=== PATIENT | female | born 2000 ===

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

== ENCOUNTER 2021-04-13 18:27 | Emergency (ER) | payer OTHER ==
--- NOTE | 2021-04-13 19:35 | XRay Report ---
EXAMINATION: Right rib radiograph series, 04/13/2021 CLINICAL INFORMATION / INDICATION: Right rib pain. No history of trauma is given. COMPARISON: None FINDINGS: No displaced right rib fracture or other acute bony abnormality of the right ribs is identi fied. The accompanying chest radiograph demonstrates no evidence of acute cardiopulmonary process. IMPRESSION: No radiographic evidence of acute bony abnormality of the right ribs. Signer Name: Dorita Graf MD Signed: 04/13/2021 7:31 PM Workstation Name: [id number]
--- NOTE | 2021-04-13 20:19 | Emergency Department Report ---
ED General Adult HPI - General Chief complaint: Pain General Stated complaint: RIB PAIN Time Seen by Provider: 04/13/21 18:47 Source: patient, family Mode of arrival: Ambulatory Limitations: No Limitations - History of Present Illness Initial comments: FELL ON HER RIGHT SIDE OF CHEST FEW WEEKS AGO STILL HURTS -: Sudden, days(s) Location: chest Radiation: non-radiation Severity scale (0 -10): 5 Consistency: intermittent Improves with: movement Worsens with: none - Related Data Previous Rx's Medication Instructions Recorded Last Taken Type Ibuprofen [Motrin 600 MG tab] 600 mg PO Q8H PRN #15 tablet 06/03/18 Unknown Rx Doxylamine Succinate/Vit B6 1 each PO BID #20 tablet. 05/27/19 Unknown Rx [Gustavo Lea 10-10 mg Tablet] Ketorolac [Toradol] 10 mg PO Q6H PRN #10 04/13/21 Unknown Rx Allergies Allergy/AdvReac Type Severity Reaction Status Date / Time No Known Allergies Allergy Verified 05/27/19 15:36 ED Review of Systems ROS: Stated complaint: RIB PAIN Other details as noted in HPI Constitutional: denies: chills, fever Eyes: denies: eye pain, eye discharge, vision change ENT: denies: ear pain, throat pain Respiratory: denies: cough, shortness of breath, wheezing Cardiovascular: denies: chest pain, palpitations Endocrine: no symptoms reported Gastrointestinal: denies: abdominal pain, nausea, diarrhea Genitourinary: denies: urgency, dysuria, discharge Musculoskeletal: denies: back pain, joint swelling, arthralgia Skin: denies: rash, lesions Neurological: denies: headache, weakness, paresthesias Psychiatric: denies: anxiety, depression Hematological/Lymphatic: denies: easy bleeding, easy bruising ED Past Medical Hx - Past Medical History Previous Medical History?: No Hx Hypertension: No - Social History Smoking Status: Never Smoker Substance Use Type: None - Medications Home Medications: Home Medications Medication Instructions Recorded Confirmed Last Taken Type Ibuprofen [Motrin 600 MG tab] 600 mg PO Q8H PRN #15 tablet 06/03/18 Unknown Rx Doxylamine Succinate/Vit B6 1 each PO BID #20 tablet. 05/27/19 Unknown Rx [Gustavo Lea 10-10 mg Tablet] Ketorolac [Toradol] 10 mg PO Q6H PRN #10 04/13/21 Unknown Rx ED Physical Exam - General Limitations: No Limitations General appearance: alert, in no apparent distress - Head Head exam: Present: atraumatic, normocephalic - Eye Eye exam: Present: normal appearance - ENT ENT exam: Present: mucous membranes moist - Neck Neck exam: Present: normal inspection - Respiratory Respiratory exam: Present: normal lung sounds bilaterally, chest wall tenderness. Absent: respiratory distress - Cardiovascular Cardiovascular Exam: Present: regular rate, normal rhythm. Absent: systolic murmur, diastolic murmur, rubs, gallop - GI/Abdominal GI/Abdominal exam: Present: soft, normal bowel sounds - Extremities Exam Extremities exam: Present: normal inspection - Back Exam Back exam: Present: normal inspection - Neurological Exam Neurological exam: Present: alert, oriented X3 - Psychiatric Psychiatric exam: Present: normal affect, normal mood - Skin Skin exam: Present: warm, dry, intact, normal color. Absent: rash ED Course Vital Signs 04/13/21 18:40 Temperature 98.8 F Pulse Rate 65 Respiratory 20 Rate Blood Pressure 136/64 [Right] O2 Sat by Pulse 100 Oximetry Critical care attestation.: If time is entered above; I have spent that time in minutes in the direct care of this critically ill patient, excluding procedure time. ED Disposition Clinical Impression: Chest wall contusion Disposition: HOME / SELF CARE / HOMELESS Is pt being admited?: No Does the pt Need Aspirin: No Condition: Stable Instructions: Contusion, [id number], Rib Contusion Referrals: PRIMARY CARE, [Primary Care Provider] - 3-5 Days
[2021-04-13 21:19] VITALS: BP 139/93
== END 2021-04-13 21:00 | disposition home or self-care (01) ==
LOC: ED 18:27
DX: S20.219A Contusion of unspecified front wall of thorax, initial encounter (principal); W19.XXXA Unspecified fall, initial encounter; Y93.89 Activity, other specified; Y92.89 Other specified places as the place of occurrence of the external cause; Y99.8 Other external cause status
CPT/HCPCS: 99283